=== PATIENT | male | born 1975 | race African-American/Black ===

== ENCOUNTER 2019-01-18 19:57 | Emergency (ER) | payer MEDICAID ==
[~2019-01-18] VITALS: Ht 195.6 cm; Wt 92.1 kg
[2019-01-18 22:01] VITALS: BP 124/67; Ht 195.6 cm; Wt 92.1 kg
== END 2019-01-18 23:15 | disposition home or self-care (01) ==
LOC: ED 19:57
DX: M25.521 Pain in right elbow (principal); Z98.890 Other specified postprocedural states